=== PATIENT | male | born 1990 | race American Indian/Alaskan Native ===

== ENCOUNTER 2019-05-28 20:32 | Emergency (ER) | payer SELFPAY ==
[2019-05-28 21:35] VITALS: BP 118/55
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
== END 2019-05-29 01:15 | disposition left against medical advice (07) ==
LOC: ED 20:32
DX: M79.662 Pain in left lower leg (principal); M79.652 Pain in left thigh; G89.29 Other chronic pain; F12.10 Cannabis abuse, uncomplicated
CPT/HCPCS: 99281